=== PATIENT | female | born 1960 | race Caucasian/White ===

== ENCOUNTER → 2022-12-17 | Outpatient (CLI) | payer BC ==
[2022-12-18 16:11] LABS: HPV 16 Negative (Negative); HPV 18 Negative (Negative); HPV OTHER HR TYPES Negative (Negative)
== END | disposition home or self-care (01) ==
LOC: LAB 11:32 → LAB SHORT 11:32
PROVIDERS: Advanced Practice Midwife
DX: Z01.419 Encounter for gynecological examination (general) (routine) without abnormal findings (principal)
CPT/HCPCS: 87624; G0145

== ENCOUNTER → 2023-06-29 | Outpatient (CLI) | payer BC | END | disposition home or self-care (01) | LOC: LAB SHORT 18:09 → LAB 18:09 | DX: R82.90 Unspecified abnormal findings in urine (principal) | CPT/HCPCS: 87077; 87086; 87186 ==

== ENCOUNTER → 2025-07-18 | Outpatient (CLI) | payer BC | END | disposition home or self-care (01) | LOC: LAB 07:39 → LAB SHORT 07:39 | DX: D10.0 Benign neoplasm of lip (principal) | CPT/HCPCS: 88305 ==